=== PATIENT | female | born 1960 | race Caucasian/White ===

== ENCOUNTER 2025-05-20 21:05 | Inpatient (IN) | payer OTHER, SELFPAY ==
[2025-05-19 18:48] VITALS: BP 178/78
[2025-05-19 19:19] LABS: Hematocrit 38.5 % (37.0-47.0); Hemoglobin 12.8 g/dL (12.0-16.0); Mean Corp Hgb Conc. 33.2 g/dL (33.0-37.0); Mean Corpuscular Volume 88.3 fL (81.0-99.0); Nucleated Red Blood Cells % 0 %; Platelet Count 322 10^3/uL (130-400); Red Cell Dist. Width 12.4 % (11.5-14.5)
[2025-05-19 19:38] LABS: ALT (SGPT) 36 U/L (0-35); AST (SGOT) 24 U/L (14-36); Albumin 3.8 g/dl (3.5-5.0); Alkaline Phosphatase 131 U/L (38-126); Blood Urea Nitrogen 12 mg/dl (7-17); Calcium 9.1 mg/dl (8.4-10.2); Carbon Dioxide 26 mmol/L (22-30); Chloride 102 mmol/L (98-107); Glucose 110 mg/dl (70-99); Lipase 90 U/L (23-300); Potassium 3.6 mmol/L (3.5-5.1); Sodium 137 mmol/L (135-145); Total Protein 6.8 g/dl (6.3-8.2); eGFR > 60.00
[2025-05-19 19:53] LABS: Troponin I 0.013 ng/ml
[2025-05-19 22:13] VITALS: BMI 49.9
[2025-05-19 22:18] VITALS: BP 122/50
[2025-05-19 23:00] VITALS: BP 117/27
[2025-05-19] MEDS: TORADOL 15 MG IV (23:28)
[2025-05-20] VITALS (14 sets, daily range): BP systolic 0–180; BP diastolic 51–91; BMI 49.7
--- NOTE | 2025-05-20 00:06 | ED.GENMED ---
History of Present Illness
General
Chief Complaint: Breathing Problem
Source: patient
Exam Limitations: none
Time Seen by Provider: 05/19/25 22:13
Nursing documentation reviewed up to this point in time: agreed with
History of Present Illness
History of Present Illness:
Patient is a 64-year-old female who presents to the emergency department for evaluation of abdominal pain. Patient reports earlier today she woke up with severe epigastric abdominal pain as well as pain in her right side. She felt extremely
nauseous throughout the day and then began to vomit this evening. Earlier today she apparently did have a period of shortness of breath and lightheadedness however this is since resolved. No associated fever or exertional chest pain.
Patient states she had similar symptoms last Monday and was seen in urgent care where it thought that she may have an ulcer and was prescribed Carafate and Pepcid. Her symptoms seemed to resolve throughout the end of last week however returned
today and were much more severe in nature.
Patient denies any recent travel or recent surgeries. No personal or family history of blood clots/clotting disorders. No exogenous hormone use.
Patient had a appendectomy many years ago, otherwise no abdominal surgeries.
Review of Systems
Review of Systems
Allergies reviewed?: Yes
All Other Systems: ROS reviewed and negative except as documented in HPI and ROS
Phy Exam
Physical Exam
Physical Exam:
Vitals: Patient's vital signs are stable. Afebrile
General: Patient is moderately uncomfortable due to pain.
Skin: Warm and dry, no rashes or lesions
Head: Normocephalic, atraumatic
Eyes: Sclera nonicteric.
Throat: Protecting airway
Neck: Normal ROM, no cervical spine tenderness, no meningismus
Cardiac: Regular rate and rhythm, no murmurs.
Pulm: Normal respiratory effort, no wheezes, rales, rhonchi heard on exam
Abdomen: Abdomen soft. Reproducible tenderness in epigastric and right upper quadrant with voluntary guarding. Positive Mckeon sign. No CVA tenderness
Extremities: No evidence of cyanosis or edema. 2+ palpable DP pulses bilaterally. No tenderness of calves.
Neuro: AAOx3. Grossly intact.
Psychiatric: Normal affect.
Scores
Heart Failure Risk
Heart Failure Risk Score: Not Applicable
Course
Orders/Labs/Results
Orders:
Orders
05/19/25 18:42
Electrocardiogram (*1) Urgent
Reason for Study: Shortness of Breath
EKG- Treatment ONCE
05/19/25 19:07
Complete Blood Count/With Diff Urgent
Comprehensive Metabolic Panel Urgent
Lipase Urgent
Troponin I Urgent
05/19/25 22:33
Ketorolac [Toradol] 15 mg IV NOW STA
US Abdomen Complete/Upper Urgent
Comment:
Reason For Exam: RUQ pain, vomiting
05/20/25 00:43
0.9% Sodium Chloride 1000 ml [Nss] 1,000 ml IV BOLUS
Piperacillin/Tazo 3.375 Gram [Zosyn] 3.375 gram in 50 ml IV NOW
05/20/25 01:44
Admit/Transfer Patient As Directed
Co-Sign Provider:
Level of Care: Observation services
Assign to:: Medical/Surgical
Physician / Group: Dr. Conroy/General Surgery
Diagnosis: Acute cholecystitis
PRN Pain Medication Management As Directed
May give lesser potent ordered pain med per pt: Yes
preference::
Protocol:: Medication orders for pain may be administered in a
manner that supports deferring to patient preference
when the pt is:
- Requesting an ordered lesser potent pain medication.
Least to most potent pain medications are defined
as: acetaminophen < NSAID < tramadol < opioids
(morphine, oxycodone, hydromorphone).
- Requesting a lesser dose of the same medication IF
ORDERED.
- Requesting a less intrusive route of administration
if both routes are prescribed by the provider (PO <
IV).
05/20/25 01:46
Code Status As Directed
Resuscitation Status: Full Code
05/20/25 02:47
Lactated Ringers [Lr] 1,000 ml IV 100 mls/hr
Morphine Sulfate 2 mg IV Q4HPRN PRN
Morphine Sulfate 4 mg IV Q4HPRN PRN
Ondansetron Injectable [Zofran] 4 mg IV Q6HPRN PRN
05/20/25 02:47
Activity As Directed
Activity Level: Out of Bed-Early Mobility
Anti-embolism (RUDI) Hose As Directed
Type: Thigh high
Bladder Scan As Directed
Follow Bladder Retention/Intermittent Cath Algorithm?: Yes
PRN if no void in __ hours: 6
Frequency: Per Retention Algorithm
If Bladder Scan Result >: 400
then:: Straight cath
Intake/ Output As Directed
Frequency: Per unit guidelines
Pneumatic Compression Sleeves As Directed
Type: Thigh high
Straight Cath As Directed
Frequency: Per Retention Algorithm
Additional Instructions: as per intermittent urinary catheter algorithm
Vital Signs As Directed
Frequency: Per unit guidelines
O2 Therapy [RESP] Routine
Titrate/Wean O2 to maintain O2 sat greater than (%): 92
Rx Incentive Spirometry [RESP] Routine
Frequency: q1h while awake
# of times per hour: 10
DX Deep Vein Thrombosis Video Routine
05/20/25 Breakfast
NPO
Allow oral meds: Yes
Allow clear liquids: No
NPO with Ice Chips: Yes
05/20/25 06:13
Basic Metabolic Panel IN AM
Complete Blood Count/No Diff IN AM
05/20/25 08:00
Piperacillin/Tazo 3.375 Gram [Zosyn] 3.375 gram in 50 ml IV Q6H
05/20/25 18:00
Enoxaparin Sodium [Lovenox] 40 mg SC QPM
Abnormal Lab Results
05/19/25
19:07
WBC 12.0 H 10^3/uL
(4.8-10.8)
Abs Immat Gran (auto) 0.1 H 10^3/uL
(0-0.05)
Absolute Neuts (auto) 9.1 H 10^3/uL
(1.4-6.5)
Absolute Monos (auto) 0.9 H 10^3/uL
(0.1-0.6)
Immature Gran % 0.7 H %
(0-0.5)
Neutrophils % 75.5 H %
(42.2-75.2)
Lymphocytes % 14.2 L %
(20.5-51.1)
Glucose 110 H mg/dl
(70-99)
ALT 36 H U/L
(0-35)
Alkaline Phosphatase 131 H U/L
(38-126)
05/19/25 19:07
05/19/25 19:07
Vital Signs
Initial and Last Documented VS:
Initial Vital Signs
Temp Pulse Resp BP Pulse Ox
98.1 F 77 20 178/78 97
05/19/25 18:48 05/19/25 18:48 05/19/25 18:48 05/19/25 18:48 05/19/25 18:48
Last Documented Vital Signs
Temp Pulse Resp BP Pulse Ox
98.6 F 78 16 114/51 95
05/20/25 08:00 05/20/25 08:00 05/20/25 08:00 05/20/25 08:00 05/20/25 08:00
MDM/Problems Addressed
Differential Diagnosis Includes:
Not limited to: Biliary colic, acute cholecystitis, choledocholithiasis, pancreatitis, less likely cardiac etiology such as pericarditis/myocarditis, acute coronary syndrome, etc.
MDM/Problems Addressed:
64 year-old female with epigastric/RUQ pain with nausea & vomiting. Similar episode of symptoms about one week ago which did resolve temporarily. No fever. No current chest pain or shortness of breath. Patient has stable vital signs on arrival.
Physical exam as above.
Differential as above. Clinical picture most consistent with intra-abdominal source, likely biliary etiology. Other possibilities would be pancreatitis. While patient did have mild SOB earlier today - currently asymptomatic and ultimately do not
suspect cardio/pulmonary process. Do not suspect vascular catastrophe.
Labs were sent prior to my evaluation which reveal mild leukocytosis. Chemistry w/ very mild elevation in a ALT and Alk Phos. EKG shows normal sinus rhythm without acute ischemic changes.
ED plan: will treat pain and check abdominal ultrasound.
Update: Ultrasound reveals multiple gallstones and gallbladder sludge without any other findings of acute cholecystitis. While appears more comfortable at rest, she still has significant tenderness on palpation and RUQ and this appears to be her
2nd/3rd episode in one week.
Presentation suspicious for biliary colic however, given persistent pain and mid leukocytosis � unable to exclude an early cholecystitis. Discussed with general surgery, Dr. Conroy. Will plan to admit patient for observation, start IV antibiotics.
Possible OR tomorrow after general surgery evaluation. Patient accepted to general surgery service in stable condition. Patient comfortable with plan.
Chronic conditions affecting care:
N/A
Acute Exacerbation and/or Progression of Chronic Illness:
N/A
*Radiology
Radiology exam reviewed: radiology read reviewed
*Pulse Oximetry
SaO2: 96
Oxygen Mode of Delivery: Room air
Patient hypoxic: no
*EKG
Interpreted by ED Provider?: Yes
EKG Intrepretation Date: 05/20/25
Interpretation: abnormal
Comparison EKG: no comparison EKG present
Heart Rate: 79
Rate: normal
Rhythm: sinus and PVC's
[place]: normal axis
Interval: normal QT interval
QRS Pattern: normal QRS
Ischemia: no ischemia
*Cook Helper Preserves Interpretation
Rate: Cook Helper Preserves- N/A
*Critical Care Note
Total Time (30-74mins, 75-104mins- exclusive of procedures): Not Applicable
Patient Management
Discussion with other providers: Artificial Insemination Technician (Case discussed with general surgery)
Escalation/DeEscalation of care consider admission/obs:
Will admit with biliary colic versus early acute cholecystitis�IV ABX and general surgery evaluation
ED Attending Note
-
Portions of this chart may have been created with voice recognition software.� Occasional wrong word or��sound alike� substitutions may have occurred due to the inherent limitations of voice recognition software.
Discharge Plan
Departure
Patient Disposition: Admit
Date of Disposition: 05/20/25
Time of Disposition: 00:54
Admit to doctor: Dr. Conroy
Presentation/result/management discussed w/ accepting MD/DO: General Surgery
Discharge Problem:
Biliary colic
Interventions
Interventions:
*Risk Screen - Suicide Last Done: 05/19/25 18:52
*General Assessment Last Done: 05/19/25 18:52
*Neglect/Abuse Screening Last Done: 05/19/25 18:52
*ED- Fall Risk Assessment Last Done: 05/20/25 02:21
*ED COVID-19 Vaccine History Last Done: 05/19/25 18:52
*Nursing Disposition Last Done: 05/20/25 02:40
ED- Cardiac Assessment Last Done: 05/20/25 00:00
ED- Pulmonary Assessment Last Done: 05/20/25 00:00
Discharge Date and Time
Discharge Date/Time: 05/20/25 02:48
[2025-05-20] MEDS: ZOSYN 50 IV ×4 (01:42→21:11)
[2025-05-20] MEDS: NSS 1000 IV (01:43)
--- NOTE | 2025-05-20 01:54 | HPS.HSE ---
Addendum entered and electronically signed by Jarrett Douglass MD 05/20/25 11:33:
Patient seen and examined.
Patient is a 64 yo F with a PMH notable for morbid obesity, HLD, hypothyroidism, and s/p appendectomy who presents with several days of abdominal discomfort. Ms. Robles states that she initially had upper abdominal discomfort last Monday after
having some cottage cheese. She initially presented to an urgent care where she was told that her symptoms were related to gastritis/ulcer disease. She was started on famotidine and sucralfate. Over the next 48 to 72 hours her symptoms improved
and resolved. Over the weekend she was able to attend a baby shower without any worsening in symptoms. On Monday she had recurrence of OF right flank abdominal discomfort. She has persistent epigastric and RUQ discomfort. Associated nausea and
dry heaves. Chills, but no documented fevers. She reports darker urine, denies any pale stools or jaundice. She denies any prior attacks of similar abdominal discomfort. She denies any family history of gallbladder disease.
Gen: NAD
Abd: morbid obesity (limited exam), soft, tending in RUQ and epigastrium, ND, non-peritoneal, prior incisions well healed
Labs and US imaging were reviewed.
Patient is a 64 yo F p/w acute cholecystitis
The natural history and pathophysiology of biliary and stone disease was discussed. Anatomy was reviewed. Workup thus far including ultrasound and labs were reviewed. Options for management were reviewed. Given her persistent discomfort
recommend cholecystectomy.
Plan for a laparoscopic cholecystectomy with possible cholangiogram. The procedure itself, as well as the risks, benefits, and alternatives was discussed. Specifically, we discussed the risks of bleeding, infection, injury to surrounding
structures (bowel, bile ducts), CBD injury, need for open procedure. Typical postprocedure recovery was discussed. Specifically, we discussed pain management, activity restrictions, and a 10 to 20% risks of fluctuations in GI function. All
questions answered.
-- Laparoscopic cholecystectomy with possible IOC, timing TBD
-- NPO, IVF
-- Antibiotics: Zosyn
-- Pain control: Tylenol and IV Morphine as needed
Original Note:
Family Physician
-
Family Physician: * NONE
Chief Complaint
-
Abdominal pain
History of Present Illness
Patient is a 64 year old female, with no significant past medical history, who presents to the emergency department with upper abdominal pain. Patient stated that epigastric pain began last Monday and she went to an Urgent care where she was
treated for ulcers. She was started on Famotidine and Sucralfate. She started to feel better and was able to attend a baby shower on Monday. Monday abdominal pain was worse and radiated to right flank area, she did report nausea and one episode of
vomiting prior to coming to the emergency department. Patient denies any recent travel or recent surgeries. No personal or family history of blood clots/clotting disorders. No exogenous hormone use.Patient had a appendectomy many years ago,
otherwise no abdominal surgeries.
In the emergency department, labs: WBC slightly elevated 12.0, otherwise unremarkable. Vital signs stable, patient afebrile.
Abdomen U/S shows: Gallstones gallbladder sludge. No secondary findings to suggest acute cholecystitis. Clinical and laboratory correlation recommended. Mild hepatomegaly. Hepatic fatty infiltration. Moderate splenomegaly.
Patient received in the emergency department: Toradol, 1L NSS bolus, IV antibiotics (Zosyn 3.375 g IV).
ED provider Zander Bustamante PA-C reviewed with General Surgery, Dr. Conroy, who is accepting the patient to his service. �Plan: NPO at midnight, IV antibiotics, IV fluids, pain management, and antiemetics.
Medical History
Past Medical History
Past Medical History: Reports Hypercholesterolemia (Per pt not on any medications) and Hypothyroidism (Per pt, taken off Synthroid 20 years ago)
Past Surgical History: Reports Appendectomy (1967)
Social History
Tobacco: Vaping (multiple times, daily)
Alcohol: None
Drug: None
Personal:
Living: With Family
Family History
Family History: Not pertinent
Allergies / Home Medications
Allergies reflects when Allergies were last updated in [facility].
Home Medications with original date entered in [facility]
Allergy/Medication List:
Patient Allergies
Allergy/AdvReac Type Severity Reaction Status Date / Time
No Known Allergies Allergy Verified 05/19/25 22:19
Home Medications
�Medication �Instructions �Recorded
No Meds [No Current Medications] 05/19/25
Review of Systems
-
History Source: Patient
Constitutional: Reports See HPI
EENT: Reports No Symptoms
Respiratory: Reports Trouble Breathing (Shortness of breath)
Abdomen/GI: Reports Abdominal Pain (epigastric/right upper quadrant pain), Nausea and Vomiting (one episode right before arrival to emergency department)
: Reports Difficulty Voiding (Pt states has not voided since 2 PM)
Musculoskeletal: Reports No Symptoms
Skin: Reports No Symptoms
Neurological: Reports No Symptoms
Endocrine: Reports No Symptoms
Hematologic/Lymphatic: Reports No Symptoms
Psych: Reports Calm
Physical Exam
Vital Signs
Vital Signs
Temp Pulse Resp BP Pulse Ox
98.1 F 67 16 122/50 96
05/19/25 18:48 05/19/25 22:45 05/19/25 22:45 05/19/25 22:18 05/20/25 00:07
Physical Exam
General: Comfortable, Conversant and Pain (upper right quadrant abdominal pain, rated at 2 out of 10, with pain medications)
HEENT: NormoCephalic, Moist mucous membranes and PERRLA
Respiratory: Clear and Non Labored Respirations
Cardiac: S1/S2 and Regular Rhythm
GI: Soft, Normal Bowel Sounds and Tender (right upper quadrant/epigastric area with voluntary guarding)
Musculoskeletal: No Edema
Skin: Warm and Dry
Neuro: Awake, Alert and Oriented
Psych: Calm and Intact Judgment/Insight
Laboratory Results
-
05/19/25 19:07
05/19/25 19:07
Laboratory Results
Total Bilirubin 0.4 mg/dl (0.2-1.3) 05/19/25 19:07
AST 24 U/L (14-36) 05/19/25 19:07
ALT 36 U/L (0-35) H 05/19/25 19:07
Alkaline Phosphatase 131 U/L (38-126) H 05/19/25 19:07
Troponin I 0.013 ng/ml 05/19/25 19:07
Lipase 90 U/L (23-300) 05/19/25 19:07
Data Reviewed
-
Ultrasound: Report Reviewed by me
Medical Tests (Nuc Med, Echo, EKG etc): Image Personally Visualized and interpreted
Lab Data: Labs Reviewed by me
Impression/Plan
-
IMPRESSION:
Patient is a 64 year old female, with no significant past medical history, who presents to the emergency department with upper abdominal pain.
PLAN:
Acute cholecystitis vs. Biliary colic
-Admit to General Surgery, Med Surg under the service of Dr. Conroy
-Abdomen U/S showed: Gallstones gallbladder sludge. No secondary findings to suggest acute cholecystitis. Clinical and laboratory correlation recommended. Mild hepatomegaly. Hepatic fatty infiltration. Moderate splenomegaly.
-NPO until seen by surgery, IV fluids LR @ 100 mls/hr
-IV antibiotics: Continued Zosyn 3.375 mg Q6H.
-Pain medication: Morphine
-Antiemetics: Zofran
DVT prophylaxis: SCD's
Code status: Full code
[2025-05-20] MEDS: LR 1000 IV (04:06)
--- NOTE | 2025-05-20 05:53 | PTCARENOTE ---
Pt arrived to room AAOx3, call bowens in reach, bed in lowest position, clear speech, follows commands. No acute signs of confusion or distress. Pt is steady gait, denies pain, skin intact, no open wounds, regular diet, continent of bowel, stress
incontinent of bladder, and oriented to unit.
[2025-05-20 06:49] LABS: Hematocrit 34.4 % (37.0-47.0); Hemoglobin 11.3 g/dL (12.0-16.0); Mean Corp Hgb Conc. 32.8 g/dL (33.0-37.0); Mean Corpuscular Volume 88.2 fL (81.0-99.0); Platelet Count 290 10^3/uL (130-400); Red Cell Dist. Width 12.5 % (11.5-14.5)
[2025-05-20 07:22] LABS: Blood Urea Nitrogen 15 mg/dl (7-17); Calcium 9.0 mg/dl (8.4-10.2); Carbon Dioxide 29 mmol/L (22-30); Chloride 104 mmol/L (98-107); Estimated Creatinine Clearance 106 ml/min; Glucose 103 mg/dl (70-99); Potassium 4.4 mmol/L (3.5-5.1); Sodium 139 mmol/L (135-145); eGFR > 60.00
[2025-05-20] MEDS: MORPHINE SULFATE 2 MG IV (08:15)
[2025-05-20 08:35] LABS: ALT (SGPT) 30 U/L (0-35); AST (SGOT) 21 U/L (14-36); Albumin 3.4 g/dl (3.5-5.0); Alkaline Phosphatase 110 U/L (38-126); Total Protein 6.2 g/dl (6.3-8.2)
[2025-05-20] MEDS: ZOFRAN 4 MG IV (09:28)
--- NOTE | 2025-05-20 10:56 | CM ---
CM reviewed chart, patient seen bedside, initial assessment completed.
Patient is a 64 year old female, no significant past medical history, who presents to the emergency department with upper abdominal pain.
Patient resides with her in a two level one, one step to enter. Patient is independent with ADLs/IADLs, denies use of DME, VN/SNF. Patient does not have a PCP, is agreeable to list of PCPs, will place in patients chart. Pharmacy confirmed
[facility], confirms prescription coverage. Patient denies insecurities at home. OBS form verbally reviewed, provided with copy, placed in chart. CM will continue to follow for all discharge planning needs.
Plan; home no needs anticipated
[2025-05-20] MEDS: TORADOL 15 MG IV (11:06)
[2025-05-20] MEDS: LR IV ×2 (14:34→23:48)
--- NOTE | 2025-05-20 16:14 | W.SUR.PREOP ---
Pre-Operative Surgical Note
-
I have examined this patient prior to the performance of the scheduled procedure.
The patient's condition is unchanged from the time of the current History and
Physical and the patient is able to undergo the scheduled procedure.
--- NOTE | 2025-05-20 19:27 | W.IMMPOSTOP ---
Surgical Immed Post Op Note
-
Primary Surgeon: Rafat
Assisting Surgeon: None
Pre-op Diagnosis: Acute cholecystitis
Post-op Diagnosis: Acute on chronic cholecystitis
Procedure Performed: Laparoscopic cholecystectomy with IOC, modifier 22 for severe obesity and fatty liver
Anesthesia Type: General
Specimen / Cultures:
1. Gallbladder
Estimated Blood Loss: 53 cc
Complications: None
Operative Findings:
1. Severe acute on chronic cholecystitis, hydropic purulent bile, severe fatty liver disease, intra-hepatic GB
2. Artery taken with clips, clear view of cystic duct with inferior 1/3 of GB off the hepatic plate
3. IOC limited, cystic duct identified
4. Cystic artery taken with 30 mm carranza load stapler
5. 19 Fr Willi drain into operative field
--- NOTE | 2025-05-20 20:55 | PTCARENOTE ---
pt rec'd @ 20:55 from [facility]; pt assessed at bedside with health information internship; s/p Laparoscopic cholecystectomy with IOC; IVF as per order; O2 NC @ 2L; VSS; bed locked in lowest position, call bowens within reach, care ongoing;
[2025-05-21] MEDS: TYLENOL PO (00:14)
[2025-05-21 00:26] VITALS: BP 158/71
[2025-05-21] MEDS: NORMOSOL-R/PLASMALYTE-A 1000 IV (01:13)
[2025-05-21] MEDS: ZOSYN 50 IV ×4 (02:16→20:09)
[2025-05-21] MEDS: TYLENOL 650 MG PO ×5 (03:14→20:09)
[2025-05-21 04:09] VITALS: BP 157/87
[2025-05-21 07:20] VITALS: BP 113/58
[2025-05-21 07:45] LABS: Hematocrit 34.3 % (37.0-47.0); Hemoglobin 11.3 g/dL (12.0-16.0); Mean Corp Hgb Conc. 32.9 g/dL (33.0-37.0); Mean Corpuscular Volume 89.3 fL (81.0-99.0); Platelet Count 290 10^3/uL (130-400); Red Cell Dist. Width 12.7 % (11.5-14.5)
[2025-05-21 08:07] LABS: ALT (SGPT) 53 U/L (0-35); AST (SGOT) 59 U/L (14-36); Albumin 3.4 g/dl (3.5-5.0); Alkaline Phosphatase 116 U/L (38-126); Blood Urea Nitrogen 13 mg/dl (7-17); Calcium 8.2 mg/dl (8.4-10.2); Carbon Dioxide 26 mmol/L (22-30); Chloride 104 mmol/L (98-107); Estimated Creatinine Clearance 106 ml/min; Glucose 114 mg/dl (70-99); Potassium 4.7 mmol/L (3.5-5.1); Sodium 138 mmol/L (135-145); Total Protein 6.2 g/dl (6.3-8.2); eGFR > 60.00
[2025-05-21] MEDS: LR IV (09:15)
--- NOTE | 2025-05-21 11:51 | CM ---
Reviewed the chart notes and spoke with the patient at the bedside. Patient with abdominal drain. CM continues to be available to patient/family and is monitoring medical plan for needs at discharge.
Plan: Discharge plans will depend on the patient's progress.
[2025-05-21 11:52] VITALS: BP 147/78
[2025-05-21] MEDS: NORMOSOL-R/PLASMALYTE-A IV ×2 (13:10)
--- NOTE | 2025-05-21 16:14 | W.PN.GS2 ---
Today's Communication / Plan
-
-- LFD
-- HLIV
-- Abx: Zosyn, plan for 4 days Augmentin on DC
-- Maintain NANCY for today, anticipate removal tomorrow peding outputs and labs
Assessment / Plan
-
Patient is a 64 yo F POD#1 s/p laparoscopic cholecystectomy with cholangiogram
AVSS
Labs notable for mild reactive leukocytosis, normal bilirubin, mild LFT elevation, normal ALP
Recovering well. No major postoperative concerns. Given her degree of cholecystitis with purulence as well as difficulties related to morbid obesity and fatty liver disease we will plan to monitor in the hospital for additional IV antibiotics,
pain control, and drain management.
-- LFD
-- HLIV
-- Pain control: Tylenol, Toradol, Oxycodone
-- Abx: Zosyn, plan for 4 days Augmentin on DC
-- DVT: Lovenox
-- Maintain NANCY for today, anticipate removal tomorrow peding outputs and labs
Subjective Data
-
Date of Service: May 21, 2025
No complaints. Pain well-controlled. Tolerating clears, no nausea or vomiting. Passing small amounts of flatus. Ambulating. Voiding. Afebrile.
Objective Data
-
Intake and Output
05/20/25 05/21/25 05/22/25
06:59 06:59 06:59
Intake Total 1580 / 1580
Output Total 45 / 45
Balance 1535 / 1535
Intake:
Oral fluids 480 / 480
IV fluids (Total) 1000 / 1000
Normosol 100 / 100
IV piggybacks 100 / 100
Output:
Drain Output (Total) 45 / 45
Right Lower Abdomen [place]- 45 / 45
[place]
Other:
How many times incontinent 1
MODERATE amount urine
Number of approximated SMALL 1
amounts of urine
Number of approximated MODERATE 1 1
amounts of urine
Vital Signs
Temp Pulse Resp BP Pulse Ox
98.7 F 85 18 147/78 97
05/21/25 11:52 05/21/25 11:52 05/21/25 11:52 05/21/25 11:52 05/21/25 11:52
Lab Results
05/21/25 06:43
05/21/25 06:43
Calcium 8.2 mg/dl (8.4-10.2) L 05/21/25 06:43
Total Bilirubin 0.4 mg/dl (0.2-1.3) 05/21/25 06:43
Direct Bilirubin Cancelled 05/20/25 06:58
AST 59 U/L (14-36) H 05/21/25 06:43
ALT 53 U/L (0-35) H 05/21/25 06:43
Alkaline Phosphatase 116 U/L (38-126) 05/21/25 06:43
Total Protein 6.2 g/dl (6.3-8.2) L 05/21/25 06:43
Albumin 3.4 g/dl (3.5-5.0) L 05/21/25 06:43
Physical Exam
-
Gen; NAD
Abd: soft, mild tenderness, ND, non-peritoneal, incisions c/d/i - no erythema, ecchymosis or drainage, NANCY serosang, non-bilious
Patient has a saha catheter: No
Patient has a central line: No
[2025-05-21] MEDS: LOVENOX 40 MG SC (17:26)
[2025-05-21 23:19] VITALS: BP 124/57
[2025-05-22] MEDS: TYLENOL 650 MG PO ×3 (00:38→08:36)
[2025-05-22] MEDS: ZOSYN 50 IV ×2 (02:24→08:37)
[2025-05-22 08:00] VITALS: BP 138/82
--- NOTE | 2025-05-22 09:10 | W.PN.GS2 ---
Today's Communication / Plan
-
-- NANCY removed
-- Outpatient PO abx for 4 days post-op
-- DC today
Assessment / Plan
-
Patient is a 64 yo F POD#2 s/p laparoscopic cholecystectomy with cholangiogram
AVSS
Recovering well. No major postoperative concerns. NANCY drain removed. Recommend and plan for 4 days additional postop antibiotics. Okay for discharge today..
-- LFD
-- Pain control: Tylenol, Toradol, Oxycodone
-- Abx: Zosyn, plan for 4 days Augmentin on DC
-- DVT: Lovenox
-- NANCY removed
-- DC today
Subjective Data
-
Date of Service: May 22, 2025
Slightly more sore today after ambulation. No nausea or vomiting. No fevers or chills. Passing flatus, no BM.
Objective Data
-
Intake and Output
05/21/25 05/22/25 05/23/25
06:59 06:59 06:59
Intake Total 1580 / 1580 960 / 960
Output Total
Balance 1535 / 1535 932 / 932
Intake:
Oral fluids 480 / 480 960 / 960
IV fluids (Total) 1000 / 1000
Normosol 100 / 100
IV piggybacks 100 / 100
Output:
Drain Output (Total)
Right Lower Abdomen [place]-
[place]
Other:
How many times incontinent 1
MODERATE amount urine
Number of approximated SMALL 1
amounts of urine
Number of approximated MODERATE 1 2
amounts of urine
Vital Signs
Temp Pulse Resp BP Pulse Ox
98.5 F 79 18 138/82 96
05/22/25 08:00 05/22/25 08:00 05/22/25 08:00 05/22/25 08:00 05/22/25 08:00
Lab Results
05/21/25 06:43
05/21/25 06:43
Calcium 8.2 mg/dl (8.4-10.2) L 05/21/25 06:43
Total Bilirubin 0.4 mg/dl (0.2-1.3) 05/21/25 06:43
Direct Bilirubin Cancelled 05/20/25 06:58
AST 59 U/L (14-36) H 05/21/25 06:43
ALT 53 U/L (0-35) H 05/21/25 06:43
Alkaline Phosphatase 116 U/L (38-126) 05/21/25 06:43
Total Protein 6.2 g/dl (6.3-8.2) L 05/21/25 06:43
Albumin 3.4 g/dl (3.5-5.0) L 05/21/25 06:43
Physical Exam
-
Gen: NAD
Abd: soft, mild tenderness overlying incisions, obese, non-peritoneal, incisions c/d/i - no eirythema, ecchymosis or drainage, NANCY serous, non-bilious
Patient has a saha catheter: No
Patient has a central line: No
--- NOTE | 2025-05-22 09:26 | CM ---
Reviewed the chart notes. NANCY drain removed. Patient for discharge today.
Plan: Discharge to home with no needs.
[2025-05-22] MEDS: MIRALAX 17 GRAMS PO (10:22)
--- NOTE | 2025-05-22 11:27 | W.DS.TRANS ---
Addendum entered and electronically signed by CESAR Haynes 05/22/25 13:41:
dictated #[id number]
Original Note:
DC Summary - [employer]
-
Discharge Instructions:
Discharge Diagnosis/Procedures Laparoscopic cholecystectomy with cholangiogram
Diet Low Fat,Regular
Additional Diets If issues with bloating or diarrhea follow a low
-fat diet
Activity No strenuous activity
Additional Activity No heavy lifting (>20 lbs) or strenuous
activities for 3 weeks postoperatively
Driving Restrictions No driving if too sore or taking narcotics
Bathing Restrictions OK to Shower
Wound Care Keep incisions clean and dry. Glue will flake
off in 2 to 3 weeks. Stitches will dissolve.
Use ice to the abdomen to reduce any bruising or
swelling. Cover old drain site with gauze and
tape as needed for drainage.
Instructions:
Stand-Alone Forms:
Changes to Home Medications: No
Discharge Medications:
DC Medications w/original date entered in [employer]
acetaminophen 325 mg tablet 650 mg (2 x 325 mg) PO Q4HPRN PRN mild pain #1 tab 05/22/25
amoxicillin 875 mg-potassium clavulanate 125 mg tablet 1 tab PO Q12 antibiotic 4 days #8 tabs 05/22/25
ibuprofen 200 mg tablet 400 - 600 mg (2 - 3 x 200 mg) PO Q6HPRN PRN moderate pain #1 tab 05/22/25
oxycodone 5 mg tablet 5 mg PO Q4HPRN PRN breakthrough/severe pain #10 tabs 05/22/25
Home Medication Changes
Pending Results: No
[2025-05-22 11:37] VITALS: BP 157/78
== END 2025-05-22 12:55 | disposition home or self-care (01) | DRG 418 ==
LOC: 2 SOUTH 21:05
PROVIDERS: Emergency Medicine; Nurse Practitioner Family; Radiology Diagnostic Radiology; Surgery; ADMITTING PHYSICIAN Surgery; EMERGENCY PHYSICIAN Emergency Medicine
PROC: 0FT44ZZ Resection of Gallbladder, Percutaneous Endoscopic Approach (ICD-10-PCS; 2025-05-20)
PROC: 0W9G40Z Drainage of Peritoneal Cavity with Drainage Device, Percutaneous Endoscopic Approach (ICD-10-PCS; 2025-05-20)
PROC: BF101ZZ Fluoroscopy of Bile Ducts using Low Osmolar Contrast (ICD-10-PCS; 2025-05-20)
DX: K80.12 Calculus of gallbladder with acute and chronic cholecystitis without obstruction (principal); Q44.1 Other congenital malformations of gallbladder; Z68.42 Body mass index [BMI] 45.0-49.9, adult; E78.00 Pure hypercholesterolemia, unspecified; E03.9 Hypothyroidism, unspecified; E66.01 Morbid (severe) obesity due to excess calories; I49.3 Ventricular premature depolarization; K76.0 Fatty (change of) liver, not elsewhere classified; F17.290 Nicotine dependence, other tobacco product, uncomplicated; Z90.49 Acquired absence of other specified parts of digestive tract
CPT/HCPCS: 74300; 76000; 76700; 80048; 80053; 80076; 83690; 84484; 85025; 85027; 88304; 93005; 96361; 96374; 99285; A4300